=== PATIENT | female | born 1995 | race African-American/Black ===

== ENCOUNTER 2022-09-02 11:02 | Emergency (ER) | payer MEDICAID, OTHER ==
[~2022-09-02] VITALS: Ht 165.1 cm; Wt 186.4 kg
[2022-09-02 11:26] LABS: BASOPHILS % 0.6 % (0.0-2.0); EOSINOPHILS % 0.6 % (0.0-5.0); HEMATOCRIT. 40.8 % (36.0-48.0); HEMOGLOBIN. 13.9 g/dL (12.0-16.0); LYMPHOCYTES % 33.6 % (20.0-50.0); MEAN CORPUSCULAR HEMOGLOBIN 29.1 pg (28.0-32.0); MEAN CORPUSCULAR VOLUME 85.7 fL (81.0-99.0); MEAN PLATELET VOLUME 10.4 fl (7.4-10.4); MONOCYTES % 5.1 % (2.0-8.0); NEUTROPHILS % 60.1 % (40.0-76.0); PLATELET 273 x1000/uL (130-400); RED BLOOD CELL COUNT 4.76 mill/uL (4.2-5.4)
[2022-09-02 11:31] LABS: CHLORIDE 95 mEq/L (98-107)
[2022-09-02] MEDS ORDERED: POTASSIUM CHLORIDE 20MEQ TABLET SR PO NR (12:00)
[2022-09-02] MEDS ORDERED: HYDROCODONE/ACETAMINOPHEN 5/325MG TABLET PO SCH (12:00)
[2022-09-02] MEDS ORDERED: KETOROLAC 60MG/2ML VIAL IM NR (12:00)
[2022-09-02 12:18] LABS: CLARITY URINE CLOUDY (CLEAR); COLOR URINE YELLOW (YELLOW); KETONES URINE 2+ (NEGATIVE); LEUKOCYTE ESTERASE URINE 2+ (NEGATIVE); NITRITE URINE POSITIVE (NEGATIVE); OCCULT BLOOD URINE TRACE (NEGATIVE); PROTEIN URINE TRACE (NEGATIVE); SPECIFIC GRAVITY URINE 1.041 (1.005-1.030); UROBILINOGEN URINE 0.2 E.U./dL (0.2-1.0)
[2022-09-02] MEDS ORDERED: CEPHALEXIN 250MG CAPSULE PO NR (12:45)
[2022-09-02] MEDS ORDERED: CEPH500C2 MT (13:18)
[2022-09-02] MEDS ORDERED: FLUC150T46 MT (13:19)
[2022-09-02 13:43] VITALS: BP 130/84
== END 2022-09-02 13:46 | disposition home or self-care (01) ==
LOC: ER 11:02
DX: N39.0 Urinary tract infection, site not specified (principal); E11.9 Type 2 diabetes mellitus without complications; I10 Essential (primary) hypertension
CPT/HCPCS: 36415; 74176; 80053; 81003; 81025; 83690; 85025; 87077; 87086; 87186; 96372; 99285; J1885; Z7610

== ENCOUNTER 2022-10-14 12:23 | Emergency (ER) | payer OTHER ==
[~2022-10-14] VITALS: Ht 165.1 cm; Wt 186.0 kg
[~2022-10-14 12:23] MED LIST: CEPH500C2 MT; FLUC150T46 MT
[2022-10-14 12:24] VITALS: BP 160/94; PULSE 90; RESP 16; TEMP 98.6; O2SAT 98
[2022-10-14 13:36] LABS: BASOPHILS % 0.6 % (0.0-2.0); EOSINOPHILS % 0.6 % (0.0-5.0); HEMATOCRIT. 34.8 % (36.0-48.0); HEMOGLOBIN. 11.7 g/dL (12.0-16.0); LYMPHOCYTES % 23.1 % (20.0-50.0); MEAN CORPUSCULAR HEMOGLOBIN 29.2 pg (28.0-32.0); MEAN CORPUSCULAR HGB CONC 33.6 g/dL (31.0-37.0); MEAN CORPUSCULAR VOLUME 86.7 fL (81.0-99.0); MEAN PLATELET VOLUME 10.8 fl (7.4-10.4); MONOCYTES % 4.4 % (2.0-8.0); NEUTROPHILS % 71.3 % (40.0-76.0); PLATELET 262 x1000/uL (130-400); RED BLOOD CELL COUNT 4.02 mill/uL (4.2-5.4); RED CELL DISTRIBUTION WIDTH 14.4 % (11.6-14.6); WHITE BLOOD COUNT 13.1 x1000/uL (4.5-11.0)
[2022-10-14 13:40] LABS: CLARITY URINE CLOUDY (CLEAR); COLOR URINE DARK YELLOW (YELLOW); GLUCOSE URINE NEGATIVE (NEGATIVE); KETONES URINE NEGATIVE (NEGATIVE); LEUKOCYTE ESTERASE URINE 2+ (NEGATIVE); NITRITE URINE POSITIVE (NEGATIVE); OCCULT BLOOD URINE 3+ (NEGATIVE); PH URINE 5.5 (4.5-8.0); PROTEIN URINE 1+ (NEGATIVE); SPECIFIC GRAVITY URINE 1.028 (1.005-1.030)
[2022-10-14] MEDS ORDERED: ONDANSETRON 4MG ODT PO ONE (14:00)
[2022-10-14] MEDS ORDERED: ACETAMINOPHEN 325MG TABLET PO PRN (14:00)
[2022-10-14 14:03] LABS: HCG SCREEN NEGATIVE
[2022-10-14 14:23] LABS: MUCUS URINE 3+ /lpf (< = 2+); SQUAMOUS EPITHELIAL CELL URINE 3+ /lpf (RARE/1+)
[2022-10-14 14:24] LABS: WBC URINE 25-50 /hpf (0-2)
[2022-10-14 14:25] LABS: BACTERIA URINE 4+; RBC URINE 50-100 /hpf (0-2)
[2022-10-14 14:29] LABS: CHLORIDE 107 mEq/L (98-107); INDEX HEMOLYSI 4 (1-3); INDEX ICTERIC 1 (1-4); INDEX LIPEMIC 1 (1-3); SODIUM 135 mEq/L (136-145)
[2022-10-14 14:30] LABS: *AMPHETAMINES SCREEN URINE NEGATIVE (NEGATIVE); *BARBITURATES SCREEN URINE NEGATIVE (NEGATIVE); *BENZODIAZEPINES SCREEN URINE NEGATIVE (NEGATIVE); *COCAINE SCREEN URINE NEGATIVE (NEGATIVE); METHADONE URINE SCREEN NEGATIVE (NEGATIVE); OPIATES URINE SCREEN NEGATIVE (NEGATIVE); PHENCYCLIDINE URINE SCREEN NEGATIVE (NEGATIVE)
[2022-10-14 14:38] LABS: ALANINE AMINOTRANSFERASE 21 IU/L (13-61); ALBUMIN 2.7 g/dL (3.4-5.0); ASPARTATE AMINOTRANSFERASE 29 IU/L (15-37); BILIRUBIN TOTAL 0.5 mg/dL (0.1-1.0); CALCIUM 8.4 mg/dL (8.5-10.1); CARBON DIOXIDE 23 mEq/L (21-32); CREATININE 0.5 mg/dL (0.6-1.3); ETHANOL BLOOD < 10 mg/dL (-10); GLUCOSE 191 mg/dL (70-105); PROTEIN TOTAL 7.6 g/dL (6.0-8.3); UREA NITROGEN BLOOD 10 mg/dL (7-21)
[2022-10-14 14:42] LABS: POTASSIUM 4.3 mEq/L (3.5-5.1)
[2022-10-14 14:43] LABS: CANNABINOID URINE SCREEN PRESUMTIVE POSITIVE (NEGATIVE); ECSTASY MDMA SCREEN URINE CONF.TEST INDICATED (NEGATIVE)
[2022-10-14] MEDS ORDERED: CEPH500C2 MT (17:34)
[2022-10-14] MEDS ORDERED: IBUP-2028 MT (17:34)
== END 2022-10-15 03:46 | disposition home or self-care (01) ==
LOC: ER 12:23
DX: N39.0 Urinary tract infection, site not specified (principal)
CPT/HCPCS: 80053; 80305; 81003; 80320; 84703; 83690; 85025; 87086; 87186; 87077; 36415; 74176; 76705; 76830; 76856; 99284; Q0162; G0480

== ENCOUNTER 2023-03-09 21:15 | Emergency (ER) | payer OTHER ==
[~2023-03-09] VITALS: Ht 165.1 cm; Wt 195.0 kg
[~2023-03-09 21:15] MED LIST changes: +IBUP-2028 MT
[2023-03-09 21:26] VITALS: BP 172/89; PULSE 89; RESP 16; TEMP 98.4; O2SAT 98
[2023-03-09 23:07] LABS: BASOPHILS % 0.6 % (0.0-2.0); EOSINOPHILS % 0.7 % (0.0-5.0); HEMATOCRIT. 34.6 % (36.0-48.0); HEMOGLOBIN. 11.3 g/dL (12.0-16.0); LYMPHOCYTES % 26.4 % (20.0-50.0); MEAN CORPUSCULAR HEMOGLOBIN 28.3 pg (28.0-32.0); MEAN CORPUSCULAR HGB CONC 32.7 g/dL (31.0-37.0); MEAN CORPUSCULAR VOLUME 86.4 fL (81.0-99.0); NEUTROPHILS % 66.3 % (40.0-76.0); PLATELET 248 x1000/uL (130-400); RED CELL DISTRIBUTION WIDTH 15.3 % (11.6-14.6); WHITE BLOOD COUNT 12.1 x1000/uL (4.5-11.0)
[2023-03-09 23:34] LABS: ALANINE AMINOTRANSFERASE 18 IU/L (10-49); ALBUMIN 4.4 g/dL (3.2-4.8); ASPARTATE AMINOTRANSFERASE 14 IU/L (<34); BILIRUBIN TOTAL 0.4 mg/dL (0.1-1.0); CALCIUM 9.8 mg/dL (8.7-10.4); CARBON DIOXIDE 25 mEq/L (21-32); CHLORIDE 100 mEq/L (98-107); CREATININE 0.5 mg/dL (0.6-1.0); GLUCOSE 191 mg/dL (70-105); POTASSIUM 3.9 mEq/L (3.5-5.1); PROTEIN TOTAL 7.8 g/dL (6.0-8.3); SODIUM 135 mEq/L (136-145); UREA NITROGEN BLOOD 8 mg/dL (9-23)
== END 2023-03-09 23:58 | disposition left against medical advice (07) ==
LOC: ER 21:15
DX: Z53.21 Procedure and treatment not carried out due to patient leaving prior to being seen by health care provider (principal)
CPT/HCPCS: 36415; 76801; 80053; 84702; 85025; 86850; 86900; 99281